=== PATIENT | female | born 1970 | race African-American/Black ===

== ENCOUNTER 2017-04-13 07:17 | Day surgery (SDC) | payer OTHER ==
[~2017-04-13] VITALS: Ht 154.9 cm; Wt 100.6 kg
[2017-04-13] VITALS (11 sets, daily range): BP systolic 100–140; BP diastolic 44–82; PULSE 80–98; TEMP 97.5–98
[~2017-04-13 07:17] MED LIST: MOTRIN 800800 MG/TAB PO; NORCO 325 MG-51 TAB PO; PERCOCET 325 MG1 TA2 PO
[2017-04-13] MEDS ORDERED: CULTURELLE CAP1 EAC1 PO (07:40)
[2017-04-13] MEDS ORDERED: NORCO 325 MG-51 TAB PO (09:26)
[2017-04-13] MEDS ORDERED: MOTRIN 800800 MG/TAB PO (09:26)
[2017-04-14 04:00] VITALS: BP 99/45; PULSE 94; TEMP 98.2
[2017-04-14 07:30] VITALS: BP 101/61; PULSE 101; TEMP 98.5
== END 2017-04-14 10:00 | disposition home or self-care (01) ==
LOC: SDCO 07:17 → OB 14:30 → SDCO 04-14 10:00
DX: N92.0 Excessive and frequent menstruation with regular cycle (principal); D25.1 Intramural leiomyoma of uterus; D25.0 Submucous leiomyoma of uterus; D25.2 Subserosal leiomyoma of uterus; N83.8 Other noninflammatory disorders of ovary, fallopian tube and broad ligament; N83.02 Follicular cyst of left ovary; N73.6 Female pelvic peritoneal adhesions (postinfective); Z88.2 Allergy status to sulfonamides; Z88.6 Allergy status to analgesic agent
CPT/HCPCS: OP; A4314; J0690; J1100; J1170; J1885; J2405; J2704; J2765; J3010; J7120

== ENCOUNTER 2020-10-01 18:52 | Emergency (ER) | payer OTHER ==
[~2020-10-01] VITALS: Ht 154.9 cm; Wt 92.3 kg
[~2020-10-01 18:52] MED LIST changes: +CULTURELLE CAP1 EAC1 PO
[2020-10-01 19:26] LABS: BASO % 0.1 % (0.0-2.0); EOS # 0.1 (0.0-0.7); EOS % 0.8 % (0-4.0); GRAN # 12.1 (1.4-6.5); GRAN % 77.4 % (42.2-75.2); HEMATOCRIT 40.8 % (37.0-47.0); HEMOGLOBIN 12.9 g/dl (12.5-16.0); LYMPH # 2.4 (1.2-3.4); LYMPH % 15.5 % (20.0-51.0); MEAN CELL VOLUME 85 fl (80.0-100.0); MEAN CORPUSCULAR HEMOGLOBIN 27 pg (27.0-31.0); MEAN CORPUSCULAR HGB CONC 32 g/dl (33.0-37.0); MONO # 0.9 (0.1-0.6); MONO % 5.8 % (1.7-9.3); PLATELET COUNT 263 K/mm3 (130-400); RED BLOOD COUNT 4.82 M/mm3 (4.10-5.30); REDCELL DISTRIBUTION WIDTH-CV 15.4 % (11.5-14.5)
[2020-10-01 19:39] LABS: ALANINE AMINOTRANSFERASE 31 U/L (4-34); ALBUMIN 4.2 gm/dL (3.5-5.0); ALKALINE PHOSPHATASE 57 U/L (50-136); ANION GAP 7 mmol/L (7-16); AST,SGOT 33 U/L (15-37); BILIRUBIN,TOTAL 0.4 mg/dL (0.0-1.0); BLOOD UREA NITROGEN 13 mg/dL (7-17); CALCIUM 9.4 mg/dL (8.4-10.2); CARBON DIOXIDE 25 mmol/L (22-30); CHLORIDE 104 mmol/L (98-107); CREATININE, serum 0.92 (0.52-1.25); GLUCOSE 120 mg/dL (74-106); POTASSIUM 3.6 mmol/L (3.4-5.0); SODIUM 137 mmol/L (137-145); TOTAL PROTEIN 7.5 gm/dL (6.4-8.2)
[2020-10-01 19:58] LABS: TROPONIN-I < 0.012 ng/mL (0.000-0.035)
[2020-10-01 22:47] VITALS: BP 114/70; PULSE 84; TEMP 98.2
== END 2020-10-01 22:43 | disposition home or self-care (01) ==
LOC: COL.ER 18:52
PROVIDERS: Physician Assistant
DX: R07.89 Other chest pain (principal); Z88.6 Allergy status to analgesic agent
CPT/HCPCS: J1885; J2060; J2270